=== PATIENT | female | born 1965 | race Two or more races ===

== ENCOUNTER 2020-08-03 12:17 | Outpatient (CLI) | payer OTHER ==
[~2020-08-03 12:17] MED LIST: ADVIL ALLERGY1 EACH PO; KETO10TA2 PO; OMEPRAZOLE40 MG PO; POLY119PG PO; ULTRACET PO; ZANTAC150 M3 PO; ZOFRAN ODT4 MG PO
== END 2020-08-03 16:23 | disposition home or self-care (01) ==
LOC: OFIC 805 12:17
PROVIDERS: ATTEND Otolaryngology
DX: E04.1 Nontoxic single thyroid nodule (principal); R22.1 Localized swelling, mass and lump, neck; K21.9 Gastro-esophageal reflux disease without esophagitis

== ENCOUNTER 2020-08-16 08:30 | Outpatient (CLI) | payer OTHER | END 2020-08-16 08:34 | disposition home or self-care (01) | LOC: SONOGRAMA 08:30 | PROVIDERS: ATTEND Pathology Anatomic Pathology & Clinical Pathology | DX: R59.0 Localized enlarged lymph nodes (principal); E04.1 Nontoxic single thyroid nodule ==

== ENCOUNTER 2023-12-10 07:56 | Outpatient (CLI) | payer OTHER | END 2023-12-10 08:03 | disposition home or self-care (01) | LOC: SONOGRAMA 07:56 | PROVIDERS: ATTEND Pathology Anatomic Pathology & Clinical Pathology | DX: D34 Benign neoplasm of thyroid gland (principal); E06.3 Autoimmune thyroiditis; E04.2 Nontoxic multinodular goiter ==

== ENCOUNTER 2024-10-20 09:46 | Outpatient (CLI) | payer OTHER | END 2024-10-20 09:52 | disposition home or self-care (01) | LOC: SONOGRAMA 09:46 | PROVIDERS: ATTEND Pathology Anatomic Pathology & Clinical Pathology | DX: D34 Benign neoplasm of thyroid gland (principal); E06.3 Autoimmune thyroiditis; E04.1 Nontoxic single thyroid nodule ==

== ENCOUNTER → 2025-05-13 | Emergency (ER) | payer OTHER ==
[~2025-05-13] VITALS: Ht 154.9 cm; Wt 86.2 kg
[~2025-05-13] MED LIST changes: +0.9 % SODIUM CHLORIDE 1,000 ML IV SCH; +ALBUTEROL2.5 MG/3 M IH; +BUDESONIDE0.5 MG/2 M IH; +CEFTRIAXONE SODIUM 1,000 MG VIAL IV STA; +METHYLPREDNISOLONE SOD SUCC 125 MG VIAL IM STA; +POTASSIUM BICARBONATE/CIT AC 25 MEQ TABLET.EFF PO STA; +ZITHROMAX500 MG PO; +ZYRTEC10 M3 PO
[2025-05-13 17:10] LABS: BASO % 0.6 % (0.1-1.2); EOS # 0.13 (0.04-0.54); EOS % 1.1 % (0.7-7.0); LYMPH # 3.18 (1.18-3.74); LYMPH % 25.8 % (19.3-53.1); MEAN PLATELET VOLUME 8.90 fl (9.4-12.4); MONO # 0.87 (0.24-0.82); MONO % 7.1 % (4.7-12.5); NEUT # 8.02 (1.56-6.13); NEUT % 65.1 % (34.0-71.1); RED CELL DISTRIBUTION WIDTH 14.3 % (11.6-14.4)
[2025-05-13 17:20] LABS: ERYTHROCYTE SEDIMENTATION RATE 41 mm/hr (0-30)
[2025-05-13 17:30] LABS: COVID-19 AG NEGATIVE (NEGATIVE)
[2025-05-13 17:33] LABS: ALT/SGPT 17.0 U/L (12-78); AST/SGOT 11.0 U/L (15-37); BILIRUBIN TOTAL 0.26 mg/dL (0.3-1.2); BUN CREA RATIO 28.0 (7.0-25.0); CREATININE SERUM 0.72 mg/dL (0.55-1.02); GFR 82.91; GLOBULINA 4.7 G/DL (2.4-3.5); GLUCOSE FASTING 105.0 mg/dL (65-100); OSMOLALITY SERUM 288.0 MOSM/KG (275-295)
== END | disposition home or self-care (01) ==
LOC: ER 15:16
PROVIDERS: Physician Assistant Medical
DX: J06.9 Acute upper respiratory infection, unspecified (principal); E87.6 Hypokalemia; D72.829 Elevated white blood cell count, unspecified; R50.9 Fever, unspecified; I10 Essential (primary) hypertension; Z20.822 Contact with and (suspected) exposure to COVID-19